=== PATIENT | female | born 1980 ===

== ENCOUNTER → 2021-04-16 08:47 | Outpatient (CLI) | payer OTHER ==
[~2021-04-16 08:47] MED LIST: PEPCID40 MG PO; ZOFRAN4 MG PO
== END | disposition home or self-care (01) ==
LOC: LAB 08:47
PROVIDERS: ATTEND General Practice
DX: E66.8 Other obesity (principal); E55.9 Vitamin D deficiency, unspecified; Z79.899 Other long term (current) drug therapy

== ENCOUNTER 2021-04-16 09:49 | Outpatient (CLI) | payer OTHER | END 2021-04-16 10:07 | disposition home or self-care (01) | LOC: MAMO-SONO 09:49 | PROVIDERS: ATTEND General Practice | DX: N64.4 Mastodynia (principal); Z12.31 Encounter for screening mammogram for malignant neoplasm of breast ==

== ENCOUNTER 2021-06-19 06:40 | Outpatient (CLI) | payer OTHER | END 2021-06-19 06:44 | disposition home or self-care (01) | LOC: LAB 06:40 | PROVIDERS: ATTEND General Practice | DX: E03.8 Other specified hypothyroidism (principal) ==

== ENCOUNTER 2021-06-19 07:17 | Outpatient (CLI) | payer OTHER | END 2021-06-19 07:22 | disposition home or self-care (01) | LOC: SONOGRAMA 07:17 | PROVIDERS: ATTEND General Practice | DX: E06.5 Other chronic thyroiditis (principal); E03.8 Other specified hypothyroidism ==

== ENCOUNTER 2022-05-14 07:24 | Outpatient (CLI) | payer OTHER | END 2022-05-14 15:11 | disposition home or self-care (01) | LOC: LAB 07:24 | PROVIDERS: ATTEND Internal Medicine | DX: R94.6 Abnormal results of thyroid function studies (principal); E66.9 Obesity, unspecified; E55.9 Vitamin D deficiency, unspecified ==

== ENCOUNTER 2022-05-14 08:13 | Outpatient (CLI) | payer OTHER | END 2022-05-14 08:26 | disposition home or self-care (01) | LOC: MAMO-SONO 08:13 | PROVIDERS: ATTEND Internal Medicine | DX: R94.6 Abnormal results of thyroid function studies (principal); E66.9 Obesity, unspecified; E55.9 Vitamin D deficiency, unspecified ==

== ENCOUNTER 2022-05-14 11:23 | Outpatient (CLI) | payer OTHER | END 2022-05-14 11:24 | disposition home or self-care (01) | LOC: LAB 11:23 | PROVIDERS: ATTEND Internal Medicine | DX: R94.6 Abnormal results of thyroid function studies (principal); E66.9 Obesity, unspecified; E55.9 Vitamin D deficiency, unspecified ==

== ENCOUNTER → 2022-10-23 06:29 | Outpatient (CLI) | payer OTHER | END | disposition home or self-care (01) | LOC: LAB 06:29 | PROVIDERS: ATTEND Obstetrics & Gynecology Obstetrics | DX: N39.0 Urinary tract infection, site not specified (principal) ==

== ENCOUNTER 2022-10-23 08:04 | Outpatient (CLI) | payer OTHER | END 2022-10-23 08:23 | disposition home or self-care (01) | LOC: SONOGRAMA 08:04 | PROVIDERS: ATTEND Obstetrics & Gynecology Obstetrics | DX: R10.2 Pelvic and perineal pain (principal); D25.1 Intramural leiomyoma of uterus ==

== ENCOUNTER 2024-06-08 07:20 | Outpatient (CLI) | payer OTHER ==
[2024-06-08 08:24] LABS: HEMATOCRIT 36.7 % (36.0-45.00); HEMOGLOBIN 12.3 g/dL (12.0-15.00); MEAN CELL VOLUME 77.8 fL (80.00-100.00); MEAN CORPUSCULAR HEMOGLOBIN 26.1 pg (27.00-32.0); MEAN CORPUSCULAR HGB CONC 33.5 g/dl (32.0-36.0); PLATELET COUNT 459 K/uL (150-450); RED BLOOD COUNT 4.72 M/uL (4.00-6.00); RED CELL DISTRIBUTION WIDTH 15.8 % (11.5-14.5)
[2024-06-08 08:34] LABS: URINE APPEARANCE Clear; URINE BILIRRUBIN Negative (NEGATIVE); URINE BLOOD Small; URINE COLOR Yellow; URINE GLUCOSE Negative (NEGATIVE); URINE KETONE Negative (NEGATIVE); URINE LEUKOCYTE Negative; URINE NITRATE Negative; URINE PROTEIN Negative (NEGATIVE)
[2024-06-08 08:36] LABS: INR 0.98; PARTIAL THROMBOPLASTIN TIME 27.7 SECONDS (22.0-34.0); PROTHROMBIN TIME 10.7 SECONDS (9.0-11.5)
[2024-06-08 08:39] LABS: URINE BACTERIA 121.1 uL (0.0-1933); URINE EPITHELIAL CELLS 23.7 uL (0.0-38.8); URINE RBC 11.3 uL (0.0-20.8); URINE WBC 4.9 uL (0.0-23.2)
[2024-06-08 09:42] LABS: ALBUMIN 3.2 gm/dL (3.4-5.0); BILIRUBIN TOTAL 0.44 mg/dL (0.3-1.2); CALCIUM 8.5 mg/dL (8.5-10.1); CHOL HDL RATIO 4.1 (0-5.0); CREATININE SERUM 0.69 mg/dL (0.55-1.02); GLOBULINA 3.7 G/DL (2.4-3.5); POTASSIUM 3.77 mEq/L (3.5-5.1); TOTAL PROTEIN 6.9 gm/dL (6.4-8.2); TSH 2.53 uIU/mL (0.358-3.74)
== END 2024-06-08 07:34 | disposition home or self-care (01) ==
LOC: LAB 07:20
PROVIDERS: ATTEND Internal Medicine
DX: J06.9 Acute upper respiratory infection, unspecified (principal); N39.0 Urinary tract infection, site not specified; R31.0 Gross hematuria; E78.2 Mixed hyperlipidemia; K92.0 Hematemesis; E03.8 Other specified hypothyroidism; E11.00 Type 2 diabetes mellitus with hyperosmolarity without nonketotic hyperglycemic-hyperosmolar coma (NKHHC)

== ENCOUNTER 2024-06-09 10:45 | Outpatient (CLI) | payer OTHER ==
[2024-06-09 11:36] LABS: ob NEGATIVE (NEGATIVE)
== END 2024-06-09 10:46 | disposition home or self-care (01) ==
LOC: LAB 10:45
PROVIDERS: ATTEND Internal Medicine
DX: J06.9 Acute upper respiratory infection, unspecified (principal); N39.0 Urinary tract infection, site not specified; R31.0 Gross hematuria; E78.2 Mixed hyperlipidemia; K92.0 Hematemesis; E03.8 Other specified hypothyroidism; E11.00 Type 2 diabetes mellitus with hyperosmolarity without nonketotic hyperglycemic-hyperosmolar coma (NKHHC)

== ENCOUNTER 2024-11-07 10:14 | Outpatient (CLI) | payer OTHER | END 2024-11-07 10:46 | disposition home or self-care (01) | LOC: MAMO-SONO 10:14 | PROVIDERS: ATTEND Obstetrics & Gynecology | DX: N63.10 Unspecified lump in the right breast, unspecified quadrant (principal); N63.20 Unspecified lump in the left breast, unspecified quadrant ==